=== PATIENT | female | born 1950 | race African-American/Black ===

== ENCOUNTER 2021-12-09 03:19 | Observation (INO) | payer SELFPAY ==
[2021-12-09] MEDS ORDERED: ONDANSETRON 4 MG/2 ML VIAL ONE ×2 (03:44→03:59)
[2021-12-09] MEDS ORDERED: ONDANSETRON 4 MG/2 ML VIAL IVPUSH ONE (03:44)
[2021-12-09] MEDS ORDERED: SODIUM CHLORIDE 0.9% 500 ML INFUS.BAG IV ONE ×2 (04:11→05:16)
[2021-12-09 04:19] LABS: BASO % 1.1 % (0-2.0); EOS % 0.2 % (0-4.5); HEMATOCRIT 41.1 % (32.4-45.2); HEMOGLOBIN 13.5 GM/dL (10.7-15.3); LYMPH % 27.6 % (8-40); MCH 29.6 pg (25.7-33.7); MCHC 32.9 g/dl (32.0-36.0); MEAN PLT VOLUME 9.4 fl (7.5-11.1); MONO % 6.2 % (3.8-10.2); NEUT % 64.9 % (42.8-82.8); PLATELET COUNT 241 10^3/uL (134-434); RBC 4.57 M/mm3 (3.60-5.2); RDW 13.3 % (11.6-15.6); WHITE BLOOD COUNT 7.5 K/mm3 (4.0-10.0)
[2021-12-09 04:29] LABS: INR 1.05 (0.83-1.09); PROTHROMBIN TIME (PATIENT) 12.1 SEC (9.7-13.0)
[2021-12-09 04:32] LABS: ACTIVATED PTT 28.3 SECONDS (25.2-36.5)
[2021-12-09 04:41] LABS: CALCIUM 9.3 mg/dL (8.5-10.1)
[2021-12-09 04:42] LABS: ALBUMIN 4.1 g/dl (3.4-5.0); BLOOD UREA NITROGEN 11.4 mg/dL (7-18); MAGNESIUM 2.2 mg/dL (1.8-2.4)
[2021-12-09 04:45] LABS: CREATININE 0.8 mg/dL (0.55-1.3); PHOSPHOROUS 3.3 mg/dL (2.5-4.9)
[2021-12-09 04:46] LABS: BILIRUBIN,TOTAL 0.9 mg/dL (0.2-1); TOT PROT 7.3 g/dl (6.4-8.2)
[2021-12-09 04:51] LABS: EPI CELLS 4 /uL (0-25.1); HYALINE CASTS 0 /uL (0-3.1); PH,URINE 7.5 (5.0-8.0); URINE APPEARANCE CLEAR; URINE BACTERIA 21 /uL (0-1359); URINE BILIRUBIN NEGATIVE (NEGATIVE); URINE COLOR YELLOW; URINE GLUCOSE (UA) TRACE (NEGATIVE); URINE KETONE 1+ (NEGATIVE); URINE LEUK ESTERASE TRACE (NEGATIVE); URINE NITRITE NEGATIVE (NEGATIVE); URINE PROTEIN NEGATIVE (NEGATIVE); URINE RBC 5 /uL (0-23.9); URINE UROBILINOGEN 0.2 mg/dL (0.2-1.0); URINE WBC 4 /uL (0-25.8)
[2021-12-09] MEDS ORDERED: MECLIZINE HCL 25 MG TABLET (FP) PO ONE (05:45)
[2021-12-09] MEDS ORDERED: KCL 10 MEQ IVPB 10 MEQ/100 ML INFUS.BAG IVPB SCH ×2 (06:00)
[2021-12-09] MEDS ORDERED: MECLIZINE HCL 25 MG TABLET (FP) ONE (06:00)
[2021-12-09] MEDS ORDERED: KCL 10 MEQ IVPB 10 MEQ/100 ML INFUS.BAG IVPB ONE ×2 (06:01→06:18)
[2021-12-09] MEDS ORDERED: LABETALOL HCL 5 MG/1 ML (100MG/20 ML VIAL) IVPUSH ONE ×2 (06:33→08:33)
[2021-12-09] MEDS ORDERED: LABETALOL HCL 5 MG/1 ML (100MG/20 ML VIAL) ONE (08:44)
[2021-12-09] MEDS ORDERED: ENOXAPARIN NA (PORCINE) 30 MG/0.3 ML DISP.SYRIN SQ SCH (10:00)
[2021-12-09] MEDS ORDERED: ENOXAPARIN NA (PORCINE) 40 MG/0.4 ML DISP.SYRIN SQ ONE (10:08)
[2021-12-09] MEDS ORDERED: amLODIPine BESYLATE 10 MG TABLET (FP) ONE (10:08)
[2021-12-09] MEDS: ENOXAPARIN NA (PORCINE) 40 MG/0.4 ML DISP.SYRIN SQ SCH (10:12)
[2021-12-09] MEDS: amLODIPine BESYLATE 10 MG TABLET (FP) PO SCH (10:12)
[2021-12-10] MEDS ORDERED: amLODIPine BESYLATE 10 MG TABLET (FP) ONE (09:28)
[2021-12-10] MEDS ORDERED: ENOXAPARIN NA (PORCINE) 40 MG/0.4 ML DISP.SYRIN SQ ONE (09:28)
[2021-12-10] MEDS: ENOXAPARIN NA (PORCINE) 40 MG/0.4 ML DISP.SYRIN SQ SCH (09:33)
[2021-12-10] MEDS: amLODIPine BESYLATE 10 MG TABLET (FP) PO SCH (09:34)
[2021-12-10 09:36] LABS: BASO % 1.2 % (0-2.0); EOS % 0.1 % (0-4.5); HEMATOCRIT 42.7 % (32.4-45.2); HEMOGLOBIN 14.2 GM/dL (10.7-15.3); LYMPH % 24.4 % (8-40); MCH 29.5 pg (25.7-33.7); MCHC 33.1 g/dl (32.0-36.0); MONO % 8.2 % (3.8-10.2); NEUT % 66.1 % (42.8-82.8); PLATELET COUNT 212 10^3/uL (134-434); RDW 13.1 % (11.6-15.6); WHITE BLOOD COUNT 6.1 K/mm3 (4.0-10.0)
[2021-12-10 09:41] LABS: INR 1.02 (0.83-1.09); PROTHROMBIN TIME (PATIENT) 11.7 SEC (9.7-13.0)
[2021-12-10 09:44] LABS: ACTIVATED PTT 28.7 SECONDS (25.2-36.5)
[2021-12-10] MEDS ORDERED: HYDROCHLOROTHIAZIDE 12.5 MG CAPSULE (FP) PO SCH (10:00)
[2021-12-10 10:04] LABS: ALBUMIN 3.9 g/dl (3.4-5.0); BLOOD UREA NITROGEN 12.8 mg/dL (7-18)
[2021-12-10 10:07] LABS: CALCIUM 9.5 mg/dL (8.5-10.1); CREATININE 0.7 mg/dL (0.55-1.3); PHOSPHOROUS 3.2 mg/dL (2.5-4.9)
[2021-12-10 10:08] LABS: MAGNESIUM 2.4 mg/dL (1.8-2.4)
[2021-12-10 10:09] LABS: BILIRUBIN,TOTAL 0.9 mg/dL (0.2-1)
[2021-12-10] MEDS ORDERED: LOSARTAN POTASSIUM 50 MG TABLET ONE (14:02)
[2021-12-10] MEDS: LOSARTAN POTASSIUM 50 MG TABLET PO SCH (14:04)
[2021-12-10] MEDS ORDERED: hydrALAZINE HCL 10 MG TABLET PO ONE (17:41)
[2021-12-11 01:00] VITALS: RESP 20
[2021-12-11] MEDS ORDERED: HYDROCHLOROTHIAZIDE 25 MG TABLET (FP) PO SCH (10:00)
[2021-12-11] MEDS: amLODIPine BESYLATE 10 MG TABLET (FP) PO SCH (10:17)
[2021-12-11] MEDS: LOSARTAN POTASSIUM 50 MG TABLET PO SCH (10:17)
[2021-12-11] MEDS: ENOXAPARIN NA (PORCINE) 40 MG/0.4 ML DISP.SYRIN SQ SCH (10:18)
[2021-12-11 11:12] LABS: CALCIUM 10.3 mg/dL (8.5-10.1)
[2021-12-11 13:00] VITALS: BMI 21.2
[2021-12-11 14:44] VITALS: BP 124/85; PULSE 113; TEMP 99.4
== END 2021-12-11 15:45 | disposition home or self-care (01) ==
LOC: JER 03:19 → JERBED 06:48 → J5S 12-10 17:58
PROVIDERS: ADMIT Internal Medicine
PROC: 3E023GC Introduction of Other Therapeutic Substance into Muscle, Percutaneous Approach (ICD-10-PCS; principal; 2021-12-09)
PROC: 3E033GC Introduction of Other Therapeutic Substance into Peripheral Vein, Percutaneous Approach (ICD-10-PCS; 2021-12-09)
PROC: 3E0337Z Introduction of Electrolytic and Water Balance Substance into Peripheral Vein, Percutaneous Approach (ICD-10-PCS; 2021-12-09)
DX: I67.4 Hypertensive encephalopathy (principal); I10 Essential (primary) hypertension; R42 Dizziness and giddiness; R63.4 Abnormal weight loss; R11.2 Nausea with vomiting, unspecified; E87.6 Hypokalemia; Z29.8 Encounter for other specified prophylactic measures
CPT/HCPCS: 0241U-QW; 36415; 70450-TC; 70551-TC; 71045-TC-FY; 80048; 80053; 80061; 81003; 82088; 82550; 82962; 83036; 83605; 83735; 84100; 84244; 84443; 84484; 85025; 85610; 85730; 86850; 86900; 86901; 87040; 87077; 87086; 93005; 93010; 97116-GP; 97161-GP; 99285-25; G0378

== ENCOUNTER 2022-01-30 12:12 | Inpatient (IN) | payer OTHER ==
[2022-01-30] MEDS ORDERED: HYDROCHLOROTHIAZIDE 25 MG TABLET (FP) PO ONE (13:07)
[2022-01-30] MEDS ORDERED: amLODIPine BESYLATE 10 MG TABLET (FP) PO ONE (13:07)
[2022-01-30] MEDS ORDERED: amLODIPine BESYLATE 10 MG TABLET (FP) ONE (13:10)
[2022-01-30] MEDS ORDERED: HYDROCHLOROTHIAZIDE 25 MG TABLET (FP) ONE (13:10)
[2022-01-30 14:33] LABS: BASO % 0.6 % (0-2.0); EOS % 0.2 % (0-4.5); HEMATOCRIT 39.5 % (32.4-45.2); HEMOGLOBIN 12.9 GM/dL (10.7-15.3); LYMPH % 17.7 % (8-40); MCH 29.5 pg (25.7-33.7); MCHC 32.7 g/dl (32.0-36.0); MEAN CELL VOLUME 90.3 fl (80-96); MEAN PLT VOLUME 8.7 fl (7.5-11.1); MONO % 7.3 % (3.8-10.2); NEUT % 74.2 % (42.8-82.8); PLATELET COUNT 255 10^3/uL (134-434); RBC 4.37 M/mm3 (3.60-5.2); RDW 14.1 % (11.6-15.6); WHITE BLOOD COUNT 4.8 K/mm3 (4.0-10.0)
[2022-01-30 14:48] LABS: INR 0.99 (0.83-1.09); PROTHROMBIN TIME (PATIENT) 11.4 SEC (9.7-13.0)
[2022-01-30 14:51] LABS: ACTIVATED PTT 33.7 SECONDS (25.2-36.5)
[2022-01-30 14:58] LABS: CALCIUM 9.6 mg/dL (8.5-10.1)
[2022-01-30 14:59] LABS: ALBUMIN 4.2 g/dl (3.4-5.0); BLOOD UREA NITROGEN 9.1 mg/dL (7-18)
[2022-01-30 15:02] LABS: CREATININE 0.7 mg/dL (0.55-1.3); TOT PROT 7.4 g/dl (6.4-8.2)
[2022-01-30 15:03] LABS: BILIRUBIN,TOTAL 0.6 mg/dL (0.2-1)
[2022-01-30 15:07] LABS: N-TERMINAL BNP 175.9 pg/ml (5-125)
[2022-01-30] MEDS ORDERED: LOSARTAN POTASSIUM 50 MG TABLET PO ONE (15:14)
[2022-01-30] MEDS ORDERED: LOSARTAN POTASSIUM 50 MG TABLET ONE (15:15)
[2022-01-31 01:48] VITALS: BMI 19.8
[2022-01-31] MEDS ORDERED: hydrALAZINE HCL 20 MG/ML VIAL IVPUSH ONE ×2 (01:56→01:57)
[2022-01-31 09:27] VITALS: RESP 18
[2022-01-31] MEDS ORDERED: ENOXAPARIN NA (PORCINE) 30 MG/0.3 ML DISP.SYRIN SQ SCH (10:00)
[2022-01-31] MEDS ORDERED: amLODIPine BESYLATE 10 MG TABLET (FP) PO SCH (10:00)
[2022-01-31] MEDS ORDERED: FLUTICASONE PROP 0.05% 16 GM NASAL SPRAY NS SCH (10:00)
[2022-01-31] MEDS ORDERED: LOSARTAN POTASSIUM 50 MG TABLET PO SCH (10:00)
[2022-01-31] MEDS ORDERED: HYDROCHLOROTHIAZIDE 25 MG TABLET (FP) PO SCH (10:00)
[2022-01-31 10:31] LABS: BASO % 0.9 % (0-2.0); EOS % 0.5 % (0-4.5); HEMATOCRIT 39.3 % (32.4-45.2); HEMOGLOBIN 12.8 GM/dL (10.7-15.3); LYMPH % 22.6 % (8-40); MCH 29.3 pg (25.7-33.7); MCHC 32.6 g/dl (32.0-36.0); MEAN CELL VOLUME 89.9 fl (80-96); MEAN PLT VOLUME 8.6 fl (7.5-11.1); MONO % 10.2 % (3.8-10.2); NEUT % 65.8 % (42.8-82.8); PLATELET COUNT 280 10^3/uL (134-434); RBC 4.37 M/mm3 (3.60-5.2); RDW 14.1 % (11.6-15.6); WHITE BLOOD COUNT 4.6 K/mm3 (4.0-10.0)
[2022-01-31 11:04] LABS: CALCIUM 9.7 mg/dL (8.5-10.1)
[2022-01-31 11:06] LABS: ALBUMIN 3.6 g/dl (3.4-5.0); BLOOD UREA NITROGEN 12.8 mg/dL (7-18)
[2022-01-31 11:09] LABS: BILIRUBIN,TOTAL 0.6 mg/dL (0.2-1); CREATININE 0.6 mg/dL (0.55-1.3); TOT PROT 6.6 g/dl (6.4-8.2)
[2022-01-31 14:22] VITALS: BP 123/83; PULSE 99; TEMP 98.3
[2022-01-31] MEDS ORDERED: POTASSIUM CHLORIDE TABS 20 MEQ TABLET.ER (FP) PO SCH (15:00)
== END 2022-01-31 17:26 | disposition home or self-care (01) | DRG 305 ==
LOC: JER 12:12 → JERBED 16:24 → J4S 01-31 01:15
PROVIDERS: ADMIT Internal Medicine
DX: I16.0 Hypertensive urgency (principal); I12.9 Hypertensive chronic kidney disease with stage 1 through stage 4 chronic kidney disease, or unspecified chronic kidney disease; N18.9 Chronic kidney disease, unspecified; E78.5 Hyperlipidemia, unspecified; R11.2 Nausea with vomiting, unspecified; E87.6 Hypokalemia; Z91.14 Patient's other noncompliance with medication regimen
CPT/HCPCS: 36415; 71046-TC-FY; 80053; 83880; 84436; 84439; 84443; 84479; 84484; 85025; 85379; 85610; 85730; 93005; 93010; 99285-25; C9803-CS; U0003; U0005

== ENCOUNTER 2022-11-10 05:08 | Day surgery (SDC) | payer OTHER ==
[2022-11-09 11:03] VITALS: BMI 18.8
[2022-11-10 09:57] VITALS: TEMP 99.2
[2022-11-10 10:27] VITALS: BP 117/65; PULSE 76; RESP 15
== END 2022-11-10 10:30 | disposition home or self-care (01) ==
LOC: JASU-ENDO 05:08
PROVIDERS: ATTEND Student in an Organized Health Care Education/Training Program
PROC: 0DBP8ZX Excision of Rectum, Via Natural or Artificial Opening Endoscopic, Diagnostic (ICD-10-PCS; 2022-11-10)
PROC: 0DBK8ZX Excision of Ascending Colon, Via Natural or Artificial Opening Endoscopic, Diagnostic (ICD-10-PCS; principal; 2022-11-10 08:30)
DX: D12.2 Benign neoplasm of ascending colon (principal); K57.30 Diverticulosis of large intestine without perforation or abscess without bleeding; K63.89 Other specified diseases of intestine; K64.8 Other hemorrhoids
CPT/HCPCS: 88305-TC